=== PATIENT | female | born 1970 | race Caucasian/White ===

== ENCOUNTER 2017-08-21 05:23 | Emergency (ER) | payer SELFPAY ==
[~2017-08-21] VITALS: Ht 172.7 cm; Wt 67.9 kg
[~2017-08-21 05:23] MED LIST: HYDR-569 PO; HYDR12.55 PO; LISI-604 PO; ONDA4TAB6 PO; PANT-47 PO; SUCR1TAB34 PO
[2017-08-21] MEDS ORDERED: LIDOcaine Viscous 15ml cup PO ONE (06:10)
[2017-08-21] MEDS ORDERED: fentaNYL/PF 50MCG/1 ML 2ML syringe IV ONE (06:10)
[2017-08-21] MEDS ORDERED: mag hydrox/Alum hydrox/simeth 30ml oral suspension PO ONE (06:10)
[2017-08-21] MEDS ORDERED: ondansetron/PF 4mg/2ml inj IV ONE (06:10)
[2017-08-21 06:31] LABS: BASOPHILS % (AUTO) 0.4 % (0-1); EOSINOPHILS # (AUTO) 0.2 X10'3 (0-0.9); EOSINOPHILS % (AUTO) 2.8 % (0-6); HEMATOCRIT 30.5 % (35.0-45.0); HEMOGLOBIN 9.5 g/dl (12.0-16.0); LYMPHOCYTES # (AUTO) 1.6 X10'3 (1.1-4.8); LYMPHOCYTES % (AUTO) 22.1 % (21-51); MEAN CORPUSCULAR HEMOGLOBIN 22.9 PG (27.0-31.0); MEAN CORPUSCULAR HGB CONC 31.2 % (33.0-36.5); MEAN CORPUSCULAR VOLUME 73.2 FL (78-98); MEAN PLATELET VOLUME 7.1 FL (7.4-10.4); MONOCYTES # (AUTO) 0.7 X10'3 (0-0.9); MONOCYTES % (AUTO) 9.9 % (2-12); NEUTROPHILS # (AUTO) 4.7 X10'3 (1.8-7.7); NEUTROPHILS % (AUTO) 64.8 % (42-75); PLATELET COUNT 511 X10'3 (140-440); RED BLOOD COUNT 4.17 X10'6 (4.20-5.60); RED CELL DISTRIBUTION WIDTH 20.7 % (11.5-14.5); WHITE BLOOD COUNT 7.3 X10'3 (4.5-11.0)
[2017-08-21 06:32] LABS: ALANINE AMINOTRANSFERASE 26 U/L (12-78); ALBUMIN 3.6 G/DL (3.4-5.0); ALBUMIN/GLOBULIN RATIO 0.9 (1.1-1.5); ALKALINE PHOSPHATASE 74 IU/L (46-116); ANION GAP 8 (8-16); ASPARTATE AMINO TRANSFERASE 20 U/L (10-37); BILIRUBIN,TOTAL 0.3 MG/DL (0.1-1.0); BLOOD UREA NITROGEN 12 MG/DL (7-18); BUN/CREATININE RATIO 12.4 (6.6-38.0); CALCIUM 9.1 MG/DL (8.5-10.1); CHLORIDE 104 MMOL/L (99-107); CREATININE 0.97 MG/DL (0.40-0.90); GLUCOSE 116 MG/DL (70-104); LIPASE 117 U/L (73-393); POTASSIUM 3.6 MMOL/L (3.5-5.1); SODIUM 139 MMOL/L (135-145); TOTAL CARBON DIOXIDE 27.4 MMOL/L (24-32); TOTAL PROTEIN 7.4 G/DL (6.4-8.2); eGFR 62 ML/MIN
[2017-08-21 08:14] LABS: CLARITY,URINE SLIGHTLY CLOUDY (Clear); COLOR,URINE YELLOW (Yellow); GLUCOSE, URINE NEGATIVE (Neg); KETONES,URINE NEGATIVE (Neg); LEUKOCYTE ESTERASE ,URINE NEGATIVE (Neg); NITRITES, URINE NEGATIVE (Neg); OCCULT BLOOD,URINE NEGATIVE (Neg); PROTEIN,URINE NEGATIVE (Neg); URINE HCG NEGATIVE (NEG); UROBILINOGEN,URINE 0.2 E.U/dL (0.2-1.0)
[2017-08-21 08:19] LABS: UA COLLECTION TYPE CLN CATCH MIDSTREAM
[2017-08-21 08:20] LABS: SQUAMOUS EPITHELIAL CELL,UR MODERATE /LPF (FEW)
[2017-08-21 08:21] LABS: AMORPHOUS PHOSPHATES 2+; BACTERIA,URINE 1+ /HPF (Neg); RBC,URINE 0-2 /HPF (0-2); WBC,URINE 0-4 /HPF (0-4)
[2017-08-21] MEDS ORDERED: BISA-155 PO (08:21)
[2017-08-21] MEDS ORDERED: POLY119P2 PO (08:21)
[2017-08-21 08:36] VITALS: BP 162/101
[2017-08-21 08:42] LABS: ANISOCYTOSIS 3+; HYPOCHROMASIA 2+; PLATELET ESTIMATE INCREASED
[2017-08-21 08:43] LABS: ELLIPTOCYTES 1+; SCHISTOCYTES FEW; TARGET CELLS 2+
[2017-08-21 08:45] LABS: STOMATOCYTES FEW
== END 2017-08-21 08:43 | disposition home or self-care (01) ==
LOC: ER 05:23
DX: R10.11 Right upper quadrant pain (principal); F15.10 Other stimulant abuse, uncomplicated; G89.29 Other chronic pain; Z87.11 Personal history of peptic ulcer disease; Z98.890 Other specified postprocedural states; Z88.5 Allergy status to narcotic agent; Z79.899 Other long term (current) drug therapy
CPT/HCPCS: 36415; 76700; 80053; 81001; 81025; 83690; 85025; 96374; 96375; 99285; J2405; J3010

== ENCOUNTER 2017-09-26 01:31 | Emergency (ER) | payer OTHER ==
[~2017-09-26] VITALS: Ht 172.7 cm; Wt 66.1 kg
[~2017-09-26 01:31] MED LIST changes: +BISA-155 PO; +POLY119P2 PO
[2017-09-26] MEDS ORDERED: pantoprazole 40mg Tablet.DR PO ONE (01:50)
[2017-09-26] MEDS ORDERED: ondansetron 4mg rapidly disintigrating tab PO ONE (01:50)
[2017-09-26 02:34] LABS: ALANINE AMINOTRANSFERASE 35 U/L (12-78); ALBUMIN 3.9 G/DL (3.4-5.0); ALKALINE PHOSPHATASE 86 IU/L (46-116); ANION GAP 10 (8-16); ASPARTATE AMINO TRANSFERASE 34 U/L (10-37); BILIRUBIN,TOTAL 0.6 MG/DL (0.1-1.0); BLOOD UREA NITROGEN 11 MG/DL (7-18); BUN/CREATININE RATIO 9.8 (6.6-38.0); CALCIUM 10.3 MG/DL (8.5-10.1); CHLORIDE 102 MMOL/L (99-107); CREATININE 1.12 MG/DL (0.40-0.90); GLUCOSE 115 MG/DL (70-104); LIPASE 88 U/L (73-393); POTASSIUM 3.8 MMOL/L (3.5-5.1); SODIUM 140 MMOL/L (135-145); TOTAL CARBON DIOXIDE 27.8 MMOL/L (24-32); eGFR 52 ML/MIN
[2017-09-26 02:39] LABS: BASOPHILS # (AUTO) 0.1 X10'3 (0-0.2); BASOPHILS % (AUTO) 1.3 % (0-1); EOSINOPHILS # (AUTO) 0.1 X10'3 (0-0.9); EOSINOPHILS % (AUTO) 0.9 % (0-6); HEMATOCRIT 36.4 % (35.0-45.0); HEMOGLOBIN 11.1 g/dl (12.0-16.0); LYMPHOCYTES # (AUTO) 1.3 X10'3 (1.1-4.8); LYMPHOCYTES % (AUTO) 11.5 % (21-51); MEAN CORPUSCULAR HEMOGLOBIN 21.3 PG (27.0-31.0); MEAN CORPUSCULAR HGB CONC 30.4 % (33.0-36.5); MEAN CORPUSCULAR VOLUME 70.2 FL (78-98); MEAN PLATELET VOLUME 7.3 FL (7.4-10.4); MONOCYTES # (AUTO) 0.5 X10'3 (0-0.9); MONOCYTES % (AUTO) 4.9 % (2-12); NEUTROPHILS # (AUTO) 9.1 X10'3 (1.8-7.7); NEUTROPHILS % (AUTO) 81.4 % (42-75); PLATELET COUNT 720 X10'3 (140-440); RED BLOOD COUNT 5.19 X10'6 (4.20-5.60); RED CELL DISTRIBUTION WIDTH 17.1 % (11.5-14.5); WHITE BLOOD COUNT 11.1 X10'3 (4.5-11.0)
[2017-09-26 02:41] LABS: HCG SERUM QL NEGATIVE
[2017-09-26 03:02] LABS: ELLIPTOCYTES 1+; HYPOCHROMASIA 2+; PLATELET ESTIMATE INCREASED; POLYCHROMASIA 1+; TARGET CELLS 2+
[2017-09-26 03:03] LABS: ANISOCYTOSIS 1+; LARGE PLATELETS FEW
[2017-09-26] MEDS ORDERED: OMEP20TA23 PO (03:15)
[2017-09-26] MEDS ORDERED: ONDA8TAB6 PO (03:15)
[2017-09-26 03:22] VITALS: BP 198/124
== END 2017-09-26 03:24 | disposition home or self-care (01) ==
LOC: ER 01:32
DX: R10.13 Epigastric pain (principal); R11.10 Vomiting, unspecified; D47.3 Essential (hemorrhagic) thrombocythemia; G89.29 Other chronic pain; E11.9 Type 2 diabetes mellitus without complications; F15.90 Other stimulant use, unspecified, uncomplicated; Z60.2 Problems related to living alone; Z88.5 Allergy status to narcotic agent; Z79.899 Other long term (current) drug therapy
CPT/HCPCS: 36415; 80053; 83690; 83735; 84703; 85025; 99284

== ENCOUNTER 2017-10-31 18:03 | Emergency (ER) | payer OTHER ==
[~2017-10-31] VITALS: Ht 172.7 cm; Wt 68.0 kg
[~2017-10-31 18:03] MED LIST changes: +OMEP20TA23 PO; +ONDA8TAB6 PO
[2017-10-31 19:30] LABS: HEMATOCRIT 32.1 % (35.0-45.0); HEMOGLOBIN 10.3 g/dl (12.0-16.0); MEAN CORPUSCULAR HEMOGLOBIN 21.2 PG (27.0-31.0); MEAN CORPUSCULAR VOLUME 66.3 FL (78-98); MEAN PLATELET VOLUME 6.4 FL (7.4-10.4); PLATELET COUNT 635 X10'3 (140-440); RED BLOOD COUNT 4.84 X10'6 (4.20-5.60); RED CELL DISTRIBUTION WIDTH 19.4 % (11.5-14.5); WHITE BLOOD COUNT 9.4 X10'3 (4.5-11.0)
[2017-10-31 19:35] LABS: URINE HCG NEGATIVE (NEG)
[2017-10-31 19:46] LABS: ALANINE AMINOTRANSFERASE 29 U/L (12-78); ALBUMIN 3.9 G/DL (3.4-5.0); ALBUMIN/GLOBULIN RATIO 0.9 (1.1-1.5); ALKALINE PHOSPHATASE 86 IU/L (46-116); ANION GAP 10 (8-16); ASPARTATE AMINO TRANSFERASE 24 U/L (10-37); BILIRUBIN,TOTAL 0.5 MG/DL (0.1-1.0); BLOOD UREA NITROGEN 15 MG/DL (7-18); BUN/CREATININE RATIO 14.7 (6.6-38.0); CALCIUM 9.4 MG/DL (8.5-10.1); CHLORIDE 102 MMOL/L (99-107); CREATININE 1.02 MG/DL (0.40-0.90); GLUCOSE 92 MG/DL (70-104); LIPASE 89 U/L (73-393); POTASSIUM 3.3 MMOL/L (3.5-5.1); SODIUM 140 MMOL/L (135-145); TOTAL CARBON DIOXIDE 27.9 MMOL/L (24-32); TOTAL PROTEIN 8.3 G/DL (6.4-8.2); eGFR 58 ML/MIN
[2017-10-31 19:49] LABS: URINE AMPHETAMINE SCREEN POSITIVE (Neg); URINE BARBITUATE SCREEN NEGATIVE (Neg); URINE BENZODIAZEPINES SCREEN NEGATIVE (Neg); URINE CANNABINOID SCREEN NEGATIVE (Neg); URINE COCAINE SCREEN NEGATIVE (Neg); URINE METHADONE SCREEN NEGATIVE (Neg); URINE OPIATE SCREEN POSITIVE (Neg); URINE PHENCYCLIDINE SCREEN NEGATIVE (Neg)
[2017-10-31 19:53] LABS: PROTHROMBIN TIME 9.7 SECONDS (9.0-12.0)
[2017-10-31] MEDS: ondansetron/PF 4mg/2ml inj IV ONE (19:58)
[2017-10-31] MEDS: famotidine/PF 10 mg/ml inj IV ONE (19:58)
[2017-10-31] MEDS: ondansetron 4mg rapidly disintigrating tab PO ONE (20:15)
[2017-10-31] MEDS: HYDROmorphone 2mg tablet PO PRN (20:18)
[2017-10-31 20:48] LABS: BASOPHILS % (MANUAL) 1 % (0-1); EOSINOPHILS % (MANUAL) 1 % (0-6); LYMPHOCYTES % (MANUAL) 28 % (21-51); MONOCYTES % (MANUAL) 1 % (2-12); NEUTROPHILS % (MANUAL) 69 % (42-75); TOTAL CELLS COUNTED 100
[2017-10-31 20:49] LABS: GIANT PLATELET FEW; HYPOCHROMASIA 3+; LARGE PLATELETS FEW; PLATELET ESTIMATE INCREASED; POLYCHROMASIA 1+; SMUDGE CELLS FEW
[2017-10-31 20:50] LABS: ANISOCYTOSIS 2+; ELLIPTOCYTES 1+; MICROCYTOSIS 2+; POIKILOCYTOSIS 1+; TARGET CELLS 2+
[2017-10-31] MEDS: cloNIDine 0.1 mg tablet PO ONE (21:37)
[2017-10-31] MEDS: famotidine 20mg tablet PO ONE (22:45)
[2017-10-31] MEDS: LIDOcaine Viscous 15ml cup PO ONE (22:56)
[2017-10-31] MEDS: mag hydrox/Alum hydrox/simeth 30ml oral suspension PO ONE (22:56)
[2017-10-31] MEDS: hydrALAZINE 20mg/ml inj. IV ONE (22:56)
[2017-10-31] MEDS ORDERED: DOCU-28 PO (23:35)
[2017-11-01 00:07] VITALS: BP 140/59
== END 2017-11-01 00:11 | disposition home or self-care (01) ==
LOC: ER 18:04
DX: R10.13 Epigastric pain (principal); R51 Headache; K59.00 Constipation, unspecified; I10 Essential (primary) hypertension; K21.9 Gastro-esophageal reflux disease without esophagitis; G89.29 Other chronic pain; F17.200 Nicotine dependence, unspecified, uncomplicated; F15.10 Other stimulant abuse, uncomplicated; Z60.2 Problems related to living alone; Z88.5 Allergy status to narcotic agent; Z79.899 Other long term (current) drug therapy
CPT/HCPCS: 36415; 70450; 74176; 80053; 80305; 81025; 83690; 84484; 85025; 85610; 93005; 96374; 96375; 99285; J0360; J2405; J3490

== ENCOUNTER 2019-02-23 02:24 | Emergency (ER) | payer MEDICAID ==
[~2019-02-23] VITALS: Ht 172.7 cm; Wt 68.2 kg
[~2019-02-23 02:24] MED LIST changes: +DOCU-28 PO; +HYDR-4383 PO; -HYDR-569 PO
[2019-02-23 02:29] VITALS: BP 185/107
[2019-02-23] MEDS ORDERED: acetaminophen 325mg tablet PO ONE (02:55)
[2019-02-23] MEDS ORDERED: ketorolac tromethamine 15mg/ml inj. IM ONE (03:15)
== END 2019-02-23 03:31 | disposition home or self-care (01) ==
LOC: ER 02:25
DX: M77.9 Enthesopathy, unspecified (principal); I10 Essential (primary) hypertension; K21.9 Gastro-esophageal reflux disease without esophagitis; G89.29 Other chronic pain; F15.90 Other stimulant use, unspecified, uncomplicated; Z98.890 Other specified postprocedural states; Z60.2 Problems related to living alone; Z88.5 Allergy status to narcotic agent; Z79.899 Other long term (current) drug therapy
CPT/HCPCS: 29105; 96372; 99283; J1885

== ENCOUNTER 2020-09-09 02:39 | Emergency (ER) | payer MEDICAID ==
[~2020-09-09] VITALS: Ht 172.7 cm; Wt 72.7 kg
[2020-09-09] MEDS ORDERED: hydrALAZINE 20mg/ml inj. IV ONE ×2 (02:55→03:05)
--- NOTE | 2020-09-09 02:55 | NUR ---
dr lima alerted of HTN
[2020-09-09] MEDS ORDERED: diphenhydrAMINE 50 mg/ml inj IV ONE (03:05)
[2020-09-09] MEDS ORDERED: ketorolac trometh. 30mg/ml inj. IV ONE (03:05)
[2020-09-09] MEDS ORDERED: normal saline 1000ml 1,000 ML IV ONE (03:05)
--- NOTE | 2020-09-09 03:31 | NUR ---
patient reports med non compliance does not take any medications has lisinopril as outpatient medication reports not taking in unless she needs it, reports does not check or monitor her blood pressure at home. Patient reports meth use by "Hot line on 09/08/20 am"
[2020-09-09 04:04] LABS: BASOPHILS # (AUTO) 0.1 X10'3 (0-0.2); BASOPHILS % (AUTO) 1.1 % (0-1); EOSINOPHILS # (AUTO) 0.2 X10'3 (0-0.9); EOSINOPHILS % (AUTO) 2.5 % (0-6); HEMATOCRIT 46.7 % (35.0-45.0); HEMOGLOBIN 15.9 g/dl (12.0-16.0); LYMPHOCYTES # (AUTO) 2.3 X10'3 (1.1-4.8); LYMPHOCYTES % (AUTO) 32.3 % (21-51); MEAN CORPUSCULAR HEMOGLOBIN 30.2 PG (27.0-31.0); MEAN CORPUSCULAR HGB CONC 34.1 g/dL (33.0-36.5); MEAN CORPUSCULAR VOLUME 88.6 FL (78-98); MEAN PLATELET VOLUME 7.5 FL (7.4-10.4); MONOCYTES # (AUTO) 0.6 X10'3 (0-0.9); MONOCYTES % (AUTO) 8.5 % (2-12); NEUTROPHILS % (AUTO) 55.6 % (42-75); PLATELET COUNT 345 X10'3 (140-440); RED BLOOD COUNT 5.27 X10'6 (4.20-5.60); WHITE BLOOD COUNT 7.2 X10'3 (4.5-11.0)
[2020-09-09] MEDS ORDERED: LORazepam 2 mg/ml vial IV ONE (04:05)
[2020-09-09] MEDS ORDERED: lisinopril 10 MG tablet PO ONE (04:05)
--- NOTE | 2020-09-09 04:05 | NUR ---
updated Dr Guadalupe with blood pressure 208/118 new orders received.
[2020-09-09 04:11] LABS: URINE AMPHETAMINE SCREEN POSITIVE (Neg); URINE BARBITUATE SCREEN NEGATIVE (Neg); URINE BENZODIAZEPINES SCREEN NEGATIVE (Neg); URINE CANNABINOID SCREEN NEGATIVE (Neg); URINE COCAINE SCREEN NEGATIVE (Neg); URINE METHADONE SCREEN NEGATIVE (Neg); URINE OPIATE SCREEN NEGATIVE (Neg); URINE PHENCYCLIDINE SCREEN NEGATIVE (Neg)
[2020-09-09 04:17] LABS: ALANINE AMINOTRANSFERASE 33 U/L (12-78); ALBUMIN 4.1 G/DL (3.4-5.0); ALKALINE PHOSPHATASE 100 IU/L (46-116); ANION GAP 9 (8-16); ASPARTATE AMINO TRANSFERASE 25 U/L (10-37); BILIRUBIN,TOTAL 0.8 MG/DL (0.1-1.0); BLOOD UREA NITROGEN 10 MG/DL (7-18); BUN/CREATININE RATIO 8.9 (6.6-38.0); CALCIUM 9.7 MG/DL (8.5-10.1); CHLORIDE 105 MMOL/L (99-107); CREATININE 1.12 MG/DL (0.40-0.90); GLUCOSE 96 MG/DL (70-104); MAGNESIUM 2.4 MG/DL (1.5-2.4); POTASSIUM 3.3 MMOL/L (3.5-5.1); SODIUM 142 MMOL/L (135-145); TOTAL CARBON DIOXIDE 28.5 MMOL/L (24-32); TOTAL PROTEIN 8.2 G/DL (6.4-8.2); eGFR 51 ML/MIN
[2020-09-09] MEDS ORDERED: LISI10TA4 PO (04:25)
[2020-09-09 05:01] VITALS: BP 154/90
--- NOTE | 2020-09-09 05:07 | NUR ---
[facility] CALLED FOR RIDE HOME
== END 2020-09-09 05:20 | disposition home or self-care (01) ==
LOC: ER 02:39
DX: M54.2 Cervicalgia (principal); R11.2 Nausea with vomiting, unspecified; J02.9 Acute pharyngitis, unspecified; R07.89 Other chest pain; I10 Essential (primary) hypertension; K21.9 Gastro-esophageal reflux disease without esophagitis; G89.29 Other chronic pain; F15.90 Other stimulant use, unspecified, uncomplicated; Z87.11 Personal history of peptic ulcer disease; Z72.89 Other problems related to lifestyle; Z60.2 Problems related to living alone; Z88.5 Allergy status to narcotic agent; Z79.899 Other long term (current) drug therapy
CPT/HCPCS: 36415; 71045; 80053; 80305; 83735; 83880; 84484; 85025; 85610; 93005; 96361; 96374; 96375; 99285; J0360; J1200; J1885; J2060; J7030

== ENCOUNTER 2020-09-11 13:45 | Emergency (ER) | payer MEDICAID ==
[~2020-09-11] VITALS: Ht 172.7 cm; Wt 68.2 kg
[~2020-09-11 13:45] MED LIST changes: +LISI10TA4 PO
[2020-09-11 13:49] VITALS: BP 179/108
[2020-09-11] MEDS ORDERED: NAPR-56 PO (14:29)
[2020-09-11] MEDS ORDERED: PENI250T2 PO (14:29)
== END 2020-09-11 14:53 | disposition home or self-care (01) ==
LOC: ER 13:46
DX: K08.89 Other specified disorders of teeth and supporting structures (principal); F17.200 Nicotine dependence, unspecified, uncomplicated; F15.90 Other stimulant use, unspecified, uncomplicated; I10 Essential (primary) hypertension; K21.9 Gastro-esophageal reflux disease without esophagitis; G89.29 Other chronic pain; Z87.11 Personal history of peptic ulcer disease; Z72.89 Other problems related to lifestyle; Z88.6 Allergy status to analgesic agent; Z91.018 Allergy to other foods; Z79.2 Long term (current) use of antibiotics; Z79.899 Other long term (current) drug therapy
CPT/HCPCS: 99283

== ENCOUNTER 2021-10-22 12:02 | Emergency (ER) | payer MEDICAID ==
[~2021-10-22] VITALS: Ht 172.7 cm; Wt 61.3 kg
[~2021-10-22 12:02] MED LIST changes: -LISI-604 PO; +LISI10TA27 PO; -LISI10TA4 PO; +LISI5TAB22 PO
[2021-10-22 12:06] VITALS: BP 121/81
[2021-10-22] MEDS ORDERED: acetaminophen 325mg tablet PO ONE (13:00)
[2021-10-22 13:45] LABS: BASOPHILS # (AUTO) 0.1 X10'3 (0-0.2); BASOPHILS % (AUTO) 0.6 % (0-1); EOSINOPHILS % (AUTO) 0.1 % (0-6); HEMATOCRIT 41.6 % (35.0-45.0); HEMOGLOBIN 13.9 g/dl (12.0-16.0); LYMPHOCYTES # (AUTO) 1.1 X10'3 (1.1-4.8); LYMPHOCYTES % (AUTO) 13.2 % (21-51); MEAN CORPUSCULAR HEMOGLOBIN 29.5 PG (27.0-31.0); MEAN CORPUSCULAR HGB CONC 33.5 g/dL (33.0-36.5); MEAN CORPUSCULAR VOLUME 88.1 FL (78-98); MEAN PLATELET VOLUME 7.6 FL (7.4-10.4); MONOCYTES # (AUTO) 0.4 X10'3 (0-0.9); MONOCYTES % (AUTO) 5.1 % (2-12); NEUTROPHILS # (AUTO) 6.9 X10'3 (1.8-7.7); PLATELET COUNT 245 X10'3 (140-440); RED BLOOD COUNT 4.72 X10'6 (4.20-5.60); RED CELL DISTRIBUTION WIDTH 14.4 % (11.5-14.5); WHITE BLOOD COUNT 8.5 X10'3 (4.5-11.0)
[2021-10-22 14:10] LABS: ALANINE AMINOTRANSFERASE 20 U/L (12-78); ALBUMIN 3.1 G/DL (3.4-5.0); ALBUMIN/GLOBULIN RATIO 0.7 (1.1-1.5); ALKALINE PHOSPHATASE 67 IU/L (46-116); ASPARTATE AMINO TRANSFERASE 24 U/L (10-37); BILIRUBIN,TOTAL 0.8 MG/DL (0.1-1.0); BLOOD UREA NITROGEN 15 MG/DL (7-18); BUN/CREATININE RATIO 14.6 (6.6-38.0); CALCIUM 8.9 MG/DL (8.5-10.1); CREATININE 1.03 MG/DL (0.40-0.90); GLUCOSE 119 MG/DL (70-104); TOTAL CARBON DIOXIDE 27.4 MMOL/L (24-32); TOTAL PROTEIN 7.5 G/DL (6.4-8.2); eGFR 56 ML/MIN
[2021-10-22] MEDS ORDERED: CefTRIAXone/D5W-Rocephin 1gm 50 ML IV ONE (14:20)
[2021-10-22] MEDS ORDERED: normal saline 1000ML IV soln IV ONE (14:20)
[2021-10-22] MEDS ORDERED: IBUP-1985 PO (14:48)
[2021-10-22] MEDS ORDERED: CEPH500C2 PO (14:48)
[2021-10-23 08:56] LABS: POTASSIUM 3.4 MMOL/L (3.3-5.1)
[2021-10-23 15:36] LABS: ANION GAP 9 (8-16); CHLORIDE 99 MMOL/L (99-107); POTASSIUM 3.4 MMOL/L (3.5-5.1); SODIUM 135 MMOL/L (135-145)
== END 2021-10-22 16:13 | disposition home or self-care (01) ==
LOC: ER 12:03
DX: L03.115 Cellulitis of right lower limb (principal); L02.415 Cutaneous abscess of right lower limb; R50.9 Fever, unspecified; M79.604 Pain in right leg; I10 Essential (primary) hypertension; K21.9 Gastro-esophageal reflux disease without esophagitis; G89.29 Other chronic pain; F15.90 Other stimulant use, unspecified, uncomplicated; Z87.11 Personal history of peptic ulcer disease; Z98.890 Other specified postprocedural states; Z72.89 Other problems related to lifestyle; Z60.2 Problems related to living alone; Z88.5 Allergy status to narcotic agent; Z79.2 Long term (current) use of antibiotics; Z79.899 Other long term (current) drug therapy
CPT/HCPCS: 36415; 80051; 80053; 83605; 84145; 85025; 87040; 96365; 99284; J0696; J7030

== ENCOUNTER 2021-10-23 10:52 | Emergency (ER) | payer MEDICAID ==
[~2021-10-23] VITALS: Ht 172.7 cm; Wt 61.3 kg
[~2021-10-23 10:52] MED LIST changes: +CEPH500C2 PO; +IBUP-1985 PO
--- NOTE | 2021-10-23 12:15 | NUR ---
VAS TECH AT BEDSIDE.
[2021-10-23 12:48] LABS: BASOPHILS % (AUTO) 0.5 % (0-1); EOSINOPHILS % (AUTO) 0.8 % (0-6); HEMATOCRIT 38.2 % (35.0-45.0); HEMOGLOBIN 12.7 g/dl (12.0-16.0); LYMPHOCYTES # (AUTO) 1.1 X10'3 (1.1-4.8); LYMPHOCYTES % (AUTO) 22.1 % (21-51); MEAN CORPUSCULAR HEMOGLOBIN 29.2 PG (27.0-31.0); MEAN CORPUSCULAR HGB CONC 33.3 g/dL (33.0-36.5); MEAN CORPUSCULAR VOLUME 87.5 FL (78-98); MEAN PLATELET VOLUME 7.7 FL (7.4-10.4); MONOCYTES # (AUTO) 0.5 X10'3 (0-0.9); MONOCYTES % (AUTO) 10.7 % (2-12); NEUTROPHILS # (AUTO) 3.3 X10'3 (1.8-7.7); NEUTROPHILS % (AUTO) 65.9 % (42-75); PLATELET COUNT 254 X10'3 (140-440); RED BLOOD COUNT 4.37 X10'6 (4.20-5.60); RED CELL DISTRIBUTION WIDTH 14.3 % (11.5-14.5)
[2021-10-23 12:49] LABS: ALANINE AMINOTRANSFERASE 26 U/L (12-78); ALBUMIN/GLOBULIN RATIO 0.8 (1.1-1.5); ALKALINE PHOSPHATASE 65 IU/L (46-116); ANION GAP 9 (8-16); ASPARTATE AMINO TRANSFERASE 28 U/L (10-37); BILIRUBIN,TOTAL 0.4 MG/DL (0.1-1.0); BLOOD UREA NITROGEN 15 MG/DL (7-18); BUN/CREATININE RATIO 15.6 (6.6-38.0); C-REACTIVE PROTEIN 9.45 MG/DL (0.0-0.5); CALCIUM 8.7 MG/DL (8.5-10.1); CHLORIDE 105 MMOL/L (99-107); CREATININE 0.96 MG/DL (0.40-0.90); GLUCOSE 81 MG/DL (70-104); POTASSIUM 3.5 MMOL/L (3.5-5.1); SODIUM 141 MMOL/L (135-145); TOTAL CARBON DIOXIDE 26.9 MMOL/L (24-32); eGFR 61 ML/MIN
[2021-10-23] MEDS ORDERED: cephalexin 250mg capsule PO ONE (13:00)
[2021-10-23 13:18] VITALS: BP 139/94
== END 2021-10-23 14:21 | disposition home or self-care (01) ==
LOC: ER 10:53
DX: L03.115 Cellulitis of right lower limb (principal); K21.9 Gastro-esophageal reflux disease without esophagitis; G89.29 Other chronic pain; I10 Essential (primary) hypertension; E11.9 Type 2 diabetes mellitus without complications; Z88.5 Allergy status to narcotic agent; Z79.899 Other long term (current) drug therapy
CPT/HCPCS: 36415; 80053; 85025; 86140; 93971; 99284

== ENCOUNTER 2022-07-26 19:38 | Emergency (ER) | payer MEDICAID ==
[~2022-07-26] VITALS: Ht 172.7 cm; Wt 70.0 kg
[~2022-07-26 19:38] MED LIST changes: -CEPH500C2 PO
[2022-07-26] MEDS ORDERED: acetaminophen 325mg tablet PO STA (20:25)
[2022-07-26 21:05] LABS: BASOPHILS # (AUTO) 0.1 X10'3 (0-0.2); BASOPHILS % (AUTO) 0.5 % (0-1); EOSINOPHILS % (AUTO) 0 % (0-6); HEMATOCRIT 43.3 % (35.0-45.0); HEMOGLOBIN 14.8 g/dl (12.0-16.0); LYMPHOCYTES # (AUTO) 1.1 X10'3 (1.1-4.8); LYMPHOCYTES % (AUTO) 10.8 % (21-51); MEAN CORPUSCULAR HEMOGLOBIN 29.8 PG (27.0-31.0); MEAN CORPUSCULAR HGB CONC 34.1 g/dL (33.0-36.5); MEAN CORPUSCULAR VOLUME 87.3 FL (78-98); MEAN PLATELET VOLUME 7.3 FL (7.4-10.4); MONOCYTES # (AUTO) 0.7 X10'3 (0-0.9); MONOCYTES % (AUTO) 7.1 % (2-12); NEUTROPHILS # (AUTO) 8.4 X10'3 (1.8-7.7); NEUTROPHILS % (AUTO) 81.6 % (42-75); PLATELET COUNT 271 X10'3 (140-440); RED BLOOD COUNT 4.96 X10'6 (4.20-5.60); RED CELL DISTRIBUTION WIDTH 14.1 % (11.5-14.5); WHITE BLOOD COUNT 10.3 X10'3 (4.5-11.0)
[2022-07-26 21:18] LABS: ALANINE AMINOTRANSFERASE 20 U/L (12-78); ALBUMIN 3.6 G/DL (3.4-5.0); ALBUMIN/GLOBULIN RATIO 0.9 (1.1-1.5); ALKALINE PHOSPHATASE 89 IU/L (46-116); ANION GAP 10 (8-16); ASPARTATE AMINO TRANSFERASE 21 U/L (10-37); BILIRUBIN,TOTAL 0.7 MG/DL (0.1-1.0); BLOOD UREA NITROGEN 16 MG/DL (7-18); BUN/CREATININE RATIO 12.2 (6.6-38.0); CHLORIDE 97 MMOL/L (99-107); CREATININE 1.31 MG/DL (0.40-0.90); GLUCOSE 127 MG/DL (70-104); POTASSIUM 3.7 MMOL/L (3.5-5.1); SODIUM 131 MMOL/L (135-145); TOTAL CARBON DIOXIDE 23.9 MMOL/L (24-32); TOTAL PROTEIN 7.8 G/DL (6.4-8.2); eGFR 43 ML/MIN
[2022-07-26 22:10] LABS: CLARITY,URINE SLIGHTLY CLOUDY (Clear); COLOR,URINE YELLOW (Yellow); GLUCOSE, URINE NEGATIVE (Neg); KETONES,URINE NEGATIVE (Neg); LEUKOCYTE ESTERASE ,URINE SMALL (Neg); NITRITES, URINE POSITIVE (Neg); OCCULT BLOOD,URINE TRACE-INTACT (Neg); PH,URINE 5.5 (4.8-8.0); PROTEIN,URINE TRACE mg/dl (Neg); UROBILINOGEN,URINE 0.2 E.U/dL (0.2-1.0)
[2022-07-26 22:12] LABS: UA COLLECTION TYPE NON-SPECIFIED
[2022-07-26 22:18] LABS: BACTERIA,URINE 4+ /HPF (Neg); MUCUS STRANDS FEW /LPF (Neg); SQUAMOUS EPITHELIAL CELL,UR FEW /LPF (FEW); TRANSITIONAL EPI CELLS,URINE FEW /HPF; WBC CLUMPS,URINE FEW /HPF (NEGATIVE)
[2022-07-26 22:19] LABS: COARSE GRANULAR CAST 0-3 /LPF (NEGATIVE)
[2022-07-26] MEDS ORDERED: ibuprofen tablet 400 MG TABLET PO ONE (23:40)
[2022-07-26] MEDS ORDERED: cephalexin 250mg capsule PO ONE (23:40)
[2022-07-26] MEDS ORDERED: acetaminophen 325mg tablet PO ONE (23:40)
[2022-07-26] MEDS ORDERED: ondansetron 4mg rapidly disintigrating tab PO ONE (23:40)
--- NOTE | 2022-07-27 00:24 | NUR ---
pt sleeping, easily awaken, no complaints at this time
[2022-07-27] MEDS ORDERED: CEPH-585 PO (01:14)
[2022-07-27 01:44] VITALS: BP 134/70
== END 2022-07-27 01:46 | disposition home or self-care (01) ==
LOC: ER 19:39
DX: N39.0 Urinary tract infection, site not specified (principal); Z20.822 Contact with and (suspected) exposure to COVID-19; R07.9 Chest pain, unspecified; I10 Essential (primary) hypertension; K21.9 Gastro-esophageal reflux disease without esophagitis; G89.29 Other chronic pain; Z79.1 Long term (current) use of non-steroidal anti-inflammatories (NSAID); F17.200 Nicotine dependence, unspecified, uncomplicated; F15.10 Other stimulant abuse, uncomplicated; Z88.5 Allergy status to narcotic agent; Z79.899 Other long term (current) drug therapy
CPT/HCPCS: 36415; 71045; 80053; 81001; 83605; 83880; 84484; 85025; 87077; 87088; 87186; 87502; 87503; 87635; 93005; 99285; C9803

== ENCOUNTER 2022-08-22 16:26 | Inpatient (IN) | payer MEDICAID ==
[~2022-08-22] VITALS: Ht 172.7 cm; Wt 68.0 kg
[~2022-08-22 16:26] MED LIST changes: +CEPH-585 PO
[2022-08-22 18:08] LABS: ALANINE AMINOTRANSFERASE 31 U/L (12-78); ALBUMIN 3.7 G/DL (3.4-5.0); ALBUMIN/GLOBULIN RATIO 0.8 (1.1-1.5); ALKALINE PHOSPHATASE 97 IU/L (46-116); ANION GAP 14 (8-16); ASPARTATE AMINO TRANSFERASE 42 U/L (10-37); BLOOD UREA NITROGEN 10 MG/DL (7-18); CALCIUM 9.1 MG/DL (8.5-10.1); CHLORIDE 97 MMOL/L (99-107); CREATININE 1.25 MG/DL (0.40-0.90); GLUCOSE 91 MG/DL (70-104); POTASSIUM 3.6 MMOL/L (3.5-5.1); SODIUM 135 MMOL/L (135-145); TOTAL CARBON DIOXIDE 24.2 MMOL/L (24-32); TOTAL PROTEIN 8.6 G/DL (6.4-8.2); eGFR 45 ML/MIN
[2022-08-22 19:50] LABS: BASOPHILS % (AUTO) 0.6 % (0-1); EOSINOPHILS # (AUTO) 0.1 X10'3 (0-0.9); HEMATOCRIT 43.1 % (35.0-45.0); HEMOGLOBIN 14.2 g/dl (12.0-16.0); LYMPHOCYTES # (AUTO) 1.5 X10'3 (1.1-4.8); LYMPHOCYTES % (AUTO) 18.9 % (21-51); MEAN CORPUSCULAR HEMOGLOBIN 28.9 PG (27.0-31.0); MEAN CORPUSCULAR HGB CONC 32.9 g/dL (33.0-36.5); MEAN CORPUSCULAR VOLUME 87.8 FL (78-98); MEAN PLATELET VOLUME 7.4 FL (7.4-10.4); MONOCYTES # (AUTO) 0.7 X10'3 (0-0.9); MONOCYTES % (AUTO) 8.7 % (2-12); NEUTROPHILS # (AUTO) 5.5 X10'3 (1.8-7.7); NEUTROPHILS % (AUTO) 70.8 % (42-75); PLATELET COUNT 261 X10'3 (140-440); RED BLOOD COUNT 4.91 X10'6 (4.20-5.60); RED CELL DISTRIBUTION WIDTH 14.4 % (11.5-14.5); WHITE BLOOD COUNT 7.8 X10'3 (4.5-11.0)
--- NOTE | 2022-08-22 20:00 | NUR ---
I agree with A Venecia Negro assessment.
[2022-08-22] MEDS ORDERED: cephalexin 500mg capsule PO ONE (20:55)
[2022-08-22] MEDS ORDERED: CEPH-585 PO (20:56)
[2022-08-22] MEDS ORDERED: temazepam 15mg capsule PO PRN (21:00)
[2022-08-22] MEDS ORDERED: magnesium hydroxide 30ml (MOM) UD suspension PO PRN (21:35)
[2022-08-22] MEDS ORDERED: mag hydrox/Alum hydrox/simeth 30ml oral suspension PO PRN (21:35)
[2022-08-22] MEDS ORDERED: acetaminophen 325mg tablet PO PRN ×2 (21:35)
[2022-08-22] MEDS ORDERED: acetaminophen 650mg rectal suppository RC PRN (21:35)
[2022-08-22] MEDS ORDERED: ondansetron 4mg rapidly disintigrating tab PO PRN (21:35)
[2022-08-22] MEDS ORDERED: diphenhydrAMINE 25mg capsule PO PRN (21:35)
[2022-08-22] MEDS ORDERED: bisacodyl 10mg suppository rectal RC PRN (21:35)
[2022-08-22] MEDS ORDERED: diphenhydrAMINE 50 mg/ml inj IV PRN (21:35)
[2022-08-22] MEDS ORDERED: HYDROmorphone inj. 0.5 MG/0.5 ML DISP.SYRIN IV PRN (21:35)
[2022-08-22] MEDS ORDERED: ondansetron/PF 4mg/2ml inj IV PRN (21:35)
[2022-08-22 22:23] LABS: APTT 28 SECONDS (22-32)
--- NOTE | 2022-08-22 22:37 | NUR ---
ATTEMPTED TO START IV TWICE. UNABLE TO GET A START. EDMD NOTIFIED.
[2022-08-22] MEDS: dextrose 5%-1/2 normal saline 1,000 ML IV SCH (23:39)
[2022-08-22 23:47] LABS: MAGNESIUM 1.8 MG/DL (1.5-2.4); PHOSPHORUS 3.1 MG/DL (2.3-4.5)
--- NOTE | 2022-08-23 02:18 | NUR ---
Unable to get urine at this time.
[2022-08-23 03:40] LABS: URINE AMPHETAMINE SCREEN POSITIVE (Neg); URINE BARBITUATE SCREEN NEGATIVE (Neg); URINE BENZODIAZEPINES SCREEN NEGATIVE (Neg); URINE CANNABINOID SCREEN NEGATIVE (Neg); URINE COCAINE SCREEN NEGATIVE (Neg); URINE METHADONE SCREEN NEGATIVE (Neg); URINE OPIATE SCREEN NEGATIVE (Neg); URINE PHENCYCLIDINE SCREEN NEGATIVE (Neg)
[2022-08-23] MEDS ORDERED: pantoprazole 40mg Tablet.DR PO SCH (07:30)
[2022-08-23 07:52] LABS: BASOPHILS % (AUTO) 0.5 % (0-1); EOSINOPHILS # (AUTO) 0.1 X10'3 (0-0.9); HEMATOCRIT 34.2 % (35.0-45.0); HEMOGLOBIN 11.4 g/dl (12.0-16.0); LYMPHOCYTES % (AUTO) 15.6 % (21-51); MEAN CORPUSCULAR HEMOGLOBIN 29.1 PG (27.0-31.0); MEAN CORPUSCULAR HGB CONC 33.4 g/dL (33.0-36.5); MEAN CORPUSCULAR VOLUME 87.4 FL (78-98); MEAN PLATELET VOLUME 7.6 FL (7.4-10.4); MONOCYTES # (AUTO) 0.8 X10'3 (0-0.9); MONOCYTES % (AUTO) 11.9 % (2-12); NEUTROPHILS # (AUTO) 4.6 X10'3 (1.8-7.7); PLATELET COUNT 239 X10'3 (140-440); RED BLOOD COUNT 3.91 X10'6 (4.20-5.60); RED CELL DISTRIBUTION WIDTH 14.6 % (11.5-14.5); WHITE BLOOD COUNT 6.6 X10'3 (4.5-11.0)
[2022-08-23] MEDS ORDERED: heparin, porcine 5000 units/ml vial SQ SCH (08:00)
[2022-08-23] MEDS ORDERED: nicotine 21mg patch - 24 hr TD SCH (08:00)
[2022-08-23] MEDS: dextrose 5%-1/2 normal saline 1,000 ML IV SCH (08:00)
[2022-08-23] MEDS ORDERED: docusate sod 100mg capsule PO SCH (08:00)
[2022-08-23 08:44] LABS: ALANINE AMINOTRANSFERASE 31 U/L (12-78); ALBUMIN 2.7 G/DL (3.4-5.0); ALBUMIN/GLOBULIN RATIO 0.7 (1.1-1.5); ALKALINE PHOSPHATASE 74 IU/L (46-116); ANION GAP 11 (8-16); ASPARTATE AMINO TRANSFERASE 29 U/L (10-37); BILIRUBIN,TOTAL 0.8 MG/DL (0.1-1.0); BLOOD UREA NITROGEN 9 MG/DL (7-18); BUN/CREATININE RATIO 7.3 (6.6-38.0); CHLORIDE 102 MMOL/L (99-107); CREATININE 1.23 MG/DL (0.40-0.90); GLUCOSE 124 MG/DL (70-104); SODIUM 137 MMOL/L (135-145); TOTAL CARBON DIOXIDE 23.9 MMOL/L (24-32); TOTAL PROTEIN 6.4 G/DL (6.4-8.2); eGFR 46 ML/MIN
[2022-08-23 08:52] LABS: POTASSIUM 2.7 MMOL/L (3.5-5.1)
[2022-08-23 09:00] VITALS: BP 105/58
[2022-08-23] MEDS ORDERED: potassium Cl 20 mEq SR tablet PO STA (09:42)
[2022-08-23] MEDS ORDERED: POTA-207 PO (09:45)
[2022-08-23] MEDS ORDERED: sulfamethoxazole/trimethoprim DS (800/160mg) tablet PO ONE (10:55)
[2022-08-23] MEDS ORDERED: SULF1TAB45 PO (11:01)
--- NOTE | 2022-08-23 14:56 | NUR ---
WOC at bedside for consult. The MD physician is at the bedside and states wound care consult is not required at this time. Patient is discharging home.
--- NOTE | 2022-08-24 09:11 | NUR ---
Received order for consult. Patient was discharged. Left message for patient.
== END 2022-08-23 11:50 | disposition home or self-care (01) | DRG 383 ==
LOC: ER 16:27 → ED HOLD 21:39
PROVIDERS: ADMIT Family Medicine; ATTEND Family Medicine
DX: L03.115 Cellulitis of right lower limb (principal); D64.9 Anemia, unspecified; E87.6 Hypokalemia; F15.90 Other stimulant use, unspecified, uncomplicated; G89.29 Other chronic pain; K21.9 Gastro-esophageal reflux disease without esophagitis; I12.9 Hypertensive chronic kidney disease with stage 1 through stage 4 chronic kidney disease, or unspecified chronic kidney disease; N18.9 Chronic kidney disease, unspecified; Z87.11 Personal history of peptic ulcer disease; Z88.5 Allergy status to narcotic agent
CPT/HCPCS: 36415; 80053; 80305; 83605; 83735; 83880; 84100; 84443; 85025; 85610; 85730; 87040; 93971; 99285; G0378; J1644; J3490; J7042

== ENCOUNTER 2023-06-23 01:09 | Emergency (ER) | payer MEDICAID, SELFPAY ==
[~2023-06-23] VITALS: Ht 172.7 cm; Wt 68.2 kg
[~2023-06-23 01:09] MED LIST changes: -PANT-47 PO
[2023-06-23 01:52] VITALS: BP 188/100; PULSE 79; RESP 16; TEMP 97.4; O2SAT 100
[2023-06-23] MEDS ORDERED: acetaminophen 325mg tablet PO ONE (02:15)
[2023-06-23] MEDS ORDERED: ibuprofen tablet 400 MG TABLET PO ONE (02:15)
[2023-06-23] MEDS ORDERED: ondansetron 4mg rapidly disintigrating tab PO ONE (02:15)
[2023-06-23] MEDS ORDERED: sulfamethoxazole/trimethoprim DS (800/160mg) tablet PO ONE (02:15)
[2023-06-23] MEDS ORDERED: bacitracin 15gm ointment TP ONE (02:20)
[2023-06-23] MEDS ORDERED: SULF1TAB49 PO (02:34)
== END 2023-06-23 02:45 | disposition home or self-care (01) ==
LOC: ER 01:12
DX: L03.116 Cellulitis of left lower limb (principal); I10 Essential (primary) hypertension; G89.29 Other chronic pain; F15.90 Other stimulant use, unspecified, uncomplicated; Z72.89 Other problems related to lifestyle; Z88.5 Allergy status to narcotic agent; Z79.899 Other long term (current) drug therapy; Z79.2 Long term (current) use of antibiotics
CPT/HCPCS: 10060; 87070; 87077; 87186; 99284

== ENCOUNTER 2024-01-21 18:25 | Emergency (ER) | payer MEDICAID ==
[~2024-01-21] VITALS: Ht 172.7 cm; Wt 62.2 kg
[~2024-01-21 18:25] MED LIST changes: -CEPH-585 PO
[2024-01-21 20:24] LABS: BASOPHILS # (AUTO) 0.1 X10'3 (0-0.2); BASOPHILS % (AUTO) 1.4 % (0-1); EOSINOPHILS # (AUTO) 0.1 X10'3 (0-0.9); EOSINOPHILS % (AUTO) 2.1 % (0-6); HEMATOCRIT 40.9 % (35.0-45.0); HEMOGLOBIN 13.8 g/dl (12.0-16.0); LYMPHOCYTES % (AUTO) 33.1 % (21-51); MEAN CORPUSCULAR HEMOGLOBIN 30.4 PG (27.0-31.0); MEAN CORPUSCULAR HGB CONC 33.6 g/dL (33.0-36.5); MEAN CORPUSCULAR VOLUME 90.5 FL (78-98); MEAN PLATELET VOLUME 8.1 FL (7.4-10.4); MONOCYTES # (AUTO) 0.5 X10'3 (0-0.9); MONOCYTES % (AUTO) 8.9 % (2-12); NEUTROPHILS # (AUTO) 3.3 X10'3 (1.8-7.7); NEUTROPHILS % (AUTO) 54.5 % (42-75); PLATELET COUNT 287 X10'3 (140-440); RED BLOOD COUNT 4.52 X10'6 (4.20-5.60); RED CELL DISTRIBUTION WIDTH 14.5 % (11.5-14.5); WHITE BLOOD COUNT 6.1 X10'3 (4.5-11.0)
[2024-01-21 20:27] LABS: ALANINE AMINOTRANSFERASE 48 U/L (12-78); ALBUMIN 3.8 G/DL (3.4-5.0); ALBUMIN/GLOBULIN RATIO 0.9 (1.1-1.5); ALKALINE PHOSPHATASE 88 IU/L (46-116); ANION GAP 7 (8-16); BILIRUBIN,TOTAL 1.2 MG/DL (0.1-1.0); BLOOD UREA NITROGEN 15 MG/DL (7-18); BUN/CREATININE RATIO 12.4 (10.0-20.0); CALCIUM 9.4 MG/DL (8.5-10.1); CHLORIDE 105 MMOL/L (99-107); CREATININE 1.21 MG/DL (0.40-0.90); GLUCOSE 88 MG/DL (70-104); LIPASE 27 U/L (16-77); SODIUM 140 MMOL/L (135-145); TOTAL CARBON DIOXIDE 28.4 MMOL/L (24-32); eCRCL 53 ML/MIN; eGFR 47 ML/MIN
[2024-01-21 20:28] LABS: ASPARTATE AMINO TRANSFERASE 52 U/L (10-37); POTASSIUM 3.6 MMOL/L (3.5-5.1)
[2024-01-21] MEDS ORDERED: pantoprazole 40 MG vial IV STA (20:50)
[2024-01-21] MEDS ORDERED: OMEP20CA16 PO (21:02)
[2024-01-21] MEDS: pantoprazole 40mg Tablet.DR PO STA (21:11)
[2024-01-21 21:13] VITALS: BP_DIAS 88
[2024-01-21 21:38] VITALS: BP_SYST 152; PULSE 72; RESP 16; TEMP 97.9; O2SAT 99
[2024-01-21 22:06] LABS: OCCULT BLOOD STOOL NEGATIVE (Neg)
== END 2024-01-21 21:41 | disposition home or self-care (01) ==
LOC: ER 18:26
DX: K92.1 Melena (principal); I10 Essential (primary) hypertension; K21.9 Gastro-esophageal reflux disease without esophagitis; E11.9 Type 2 diabetes mellitus without complications; F15.90 Other stimulant use, unspecified, uncomplicated; Z88.5 Allergy status to narcotic agent; Z91.018 Allergy to other foods; Z79.899 Other long term (current) drug therapy
CPT/HCPCS: 36415; 80053; 82272; 83690; 85025; 99283

== ENCOUNTER 2024-04-04 17:04 | Emergency (ER) | payer MEDICAID ==
[~2024-04-04] VITALS: Ht 172.7 cm; Wt 58.6 kg
[~2024-04-04 17:04] MED LIST changes: +OMEP20CA16 PO
[2024-04-04] MEDS: cloNIDine 0.1 mg tablet PO ONE (18:23)
[2024-04-04] MEDS: ondansetron/PF 4mg/2ml inj IV ONE (19:11)
[2024-04-04] MEDS: morphine 4 MG/ML inj SYRINge IV ONE (19:14)
[2024-04-04 19:56] LABS: BASOPHILS # (AUTO) 0.1 X10'3 (0-0.2); BASOPHILS % (AUTO) 0.7 % (0-1); EOSINOPHILS # (AUTO) 0.1 X10'3 (0-0.9); EOSINOPHILS % (AUTO) 0.6 % (0-6); HEMATOCRIT 40.2 % (35.0-45.0); HEMOGLOBIN 13.5 g/dl (12.0-16.0); LYMPHOCYTES # (AUTO) 1.7 X10'3 (1.1-4.8); LYMPHOCYTES % (AUTO) 16.9 % (21-51); MEAN CORPUSCULAR HGB CONC 33.5 g/dL (33.0-36.5); MEAN CORPUSCULAR VOLUME 89.4 FL (78-98); MEAN PLATELET VOLUME 7.6 FL (7.4-10.4); MONOCYTES # (AUTO) 0.6 X10'3 (0-0.9); MONOCYTES % (AUTO) 6.4 % (2-12); NEUTROPHILS # (AUTO) 7.6 X10'3 (1.8-7.7); NEUTROPHILS % (AUTO) 75.4 % (42-75); PLATELET COUNT 297 X10'3 (140-440); RED CELL DISTRIBUTION WIDTH 14.6 % (11.5-14.5); WHITE BLOOD COUNT 10.1 X10'3 (4.5-11.0)
[2024-04-04 20:12] LABS: ALBUMIN 3.6 G/DL (3.4-5.0); ANION GAP 8 (8-16); BLOOD UREA NITROGEN 8 MG/DL (7-18); BUN/CREATININE RATIO 7.5 (10.0-20.0); CALCIUM 8.8 MG/DL (8.5-10.1); CHLORIDE 104 MMOL/L (99-107); CREATININE 1.07 MG/DL (0.40-0.90); GLUCOSE 101 MG/DL (70-104); SODIUM 141 MMOL/L (135-145); TOTAL CARBON DIOXIDE 28.6 MMOL/L (24-32); eCRCL 56 ML/MIN; eGFR 54 ML/MIN
[2024-04-04] MEDS ORDERED: potassium Cl 20 mEq SR tablet PO STA (20:43)
[2024-04-04] MEDS: penicillin V potassium 500mg tablet PO ONE (21:25)
[2024-04-04] MEDS: potassium Cl 20 mEq SR tablet PO STA (21:35)
[2024-04-04] MEDS ORDERED: ACET-2006 PO (21:45)
[2024-04-04] MEDS ORDERED: PENI-88 PO (21:45)
[2024-04-04] MEDS ORDERED: IBUP-24 PO (21:45)
[2024-04-05] MEDS ORDERED: HYDR-3965 PO (00:11)
[2024-04-05 01:56] VITALS: BP 135/83; PULSE 63; RESP 16; TEMP 97.8; O2SAT 99
== END 2024-04-05 01:58 | disposition home or self-care (01) ==
LOC: ER 17:05
DX: K04.7 Periapical abscess without sinus (principal); I10 Essential (primary) hypertension; K21.9 Gastro-esophageal reflux disease without esophagitis; E11.9 Type 2 diabetes mellitus without complications; F15.90 Other stimulant use, unspecified, uncomplicated; R51.9 Headache, unspecified; Z91.018 Allergy to other foods; Z79.1 Long term (current) use of non-steroidal anti-inflammatories (NSAID); Z79.899 Other long term (current) drug therapy; Z79.2 Long term (current) use of antibiotics
CPT/HCPCS: 36415; 70450; 80048; 84484; 85025; 93005; 96374; 96375; 99285; J2270; J2405